=== PATIENT | female | born 1990 | race Hispanic/Latino ===

== ENCOUNTER → 2023-05-07 | Outpatient (CLI) | payer MEDICARE, OTHER | END | disposition home or self-care (01) | LOC: RAH 10:32 | PROVIDERS: ATTEND Family Medicine | DX: E04.1 Nontoxic single thyroid nodule (principal) | CPT/HCPCS: 76536 ==

== ENCOUNTER 2024-02-04 12:03 | Observation (INO) | payer OTHER ==
[~2024-02-04] VITALS: Ht 160 cm; Wt 77.6 kg
[2024-02-04 13:01] LABS: APPEARANCE,URINE CLEAR (CLEAR); BILIRUBIN,URINE NEGATIVE (NEGATIVE); COLOR,URINE COLORLESS (YELLOW); GLUCOSE, URINE (UA) NEGATIVE (NEGATIVE); KETONES,URINE NEGATIVE (NEGATIVE); LEUKOCYTE ESTERASE ,URINE NEGATIVE Leu/uL (NEGATIVE); NITRATE,URINE NEGATIVE (NEGATIVE); OCCULT BLOOD,URINE NEGATIVE (NEGATIVE); PH,URINE 6.5 (5.0-8.0); PROTEIN,URINE 10 mg/dL (NEGATIVE); UROBILINOGEN,URINE 0.2 mg/dL (0.2-1.0)
[2024-02-04 13:04] LABS: BASOPHILS # (AUTO) 0.02 K/uL (0.00-0.20); BASOPHILS % (AUTO) 0.3 % (0.0-5.0); EOSINOPHILS # (AUTO) 0.08 K/uL (0.00-0.70); EOSINOPHILS % (AUTO) 1.3 % (0.0-8.0); IMMATURE GRANULOCYTE ABSOLUTE 0.08 K/uL (0-1); LYMPHOCYTES # (AUTO) 1.5 K/uL (1.0-4.8); LYMPHOCYTES % (AUTO) 24.4 % (21.0-51.0); MEAN CORPUSCULAR HEMOGLOBIN 29.8 pg (27.0-33.0); MEAN CORPUSCULAR HGB CONC 33.8 g/dL (32.0-36.0); MONOCYTES # (AUTO) 0.4 K/uL (0.1-1.0); MONOCYTES % (AUTO) 5.7 % (3.0-13.0); NEUTROPHILS # (AUTO) 4.2 K/uL (1.8-7.7); PLATELET COUNT (AUTO) 263 K/uL (130-400); RED BLOOD CELL COUNT(AUTO) 4.43 MIL/uL (4.00-5.50); RED CELL DISTRIBUTION WIDTH 13.5 % (11.0-15.5); WHITE BLOOD COUNT (AUTO) 6.3 K/uL (4.8-10.8)
[2024-02-04 13:15] LABS: INR <= 0.93 (0.85-1.15); PROTHROMBIN TIME 9.8 SEC (9.6-11.6)
[2024-02-04 13:17] LABS: PARTIAL THROMBOPLASTIN TIME 25.5 SEC (26.3-35.5)
[2024-02-04 13:23] LABS: CREATININE 0.6 mg/dL (0.5-1.0); POTASSIUM 4.1 mmol/L (3.5-5.1)
[2024-02-04 13:24] LABS: ADD UA MICROSCOPIC YES; ALBUMIN 2.7 g/dL (3.5-5.0); BILIRUBIN,TOTAL 0.3 mg/dL (0.2-1.0); TOTAL PROTEIN, SERUM 6.9 g/dL (6.0-8.3); URIC ACID 5.9 mg/dL (2.6-7.2)
[2024-02-04 13:35] LABS: RBC,URINE 0-1 /HPF (0-1); WBC,URINE 0-1 /HPF (0-1)
[2024-02-04] MEDS ORDERED: TERBUTALINE SULFATE VIAL 1MG/ML SQ ONE (13:52)
[2024-02-04] MEDS: TERBUTALINE SULFATE VIAL 1MG/ML SQ PRN (13:55)
[2024-02-04] MEDS: LACTATED RINGERS 1000ML 1,000 ML IV SCH (13:56)
[2024-02-04 14:29] LABS: FIBRINOGEN 533 mg/dL (180-350)
[2024-02-04] MEDS: ACETAMINOPHEN 500 MG TABLET PO ONE (15:43)
== END 2024-02-04 16:55 | disposition home or self-care (01) ==
LOC: LDH 12:03
PROVIDERS: ADMIT Obstetrics & Gynecology; ATTEND Obstetrics & Gynecology
DX: O10.913 Unspecified pre-existing hypertension complicating pregnancy, third trimester (principal); O26.893 Other specified pregnancy related conditions, third trimester; R11.0 Nausea; R19.7 Diarrhea, unspecified; Z3A.36 36 weeks gestation of pregnancy
CPT/HCPCS: 96372; 96360; 96361 ×2; 84550; 80053; 85025; 85384; 85610; 85730; 81001; 36415; 76805; G0378 ×5; G0379; J3105; J7120 ×2

== ENCOUNTER 2024-02-11 10:59 | Inpatient (IN) | payer OTHER ==
[~2024-02-11] VITALS: Ht 160 cm; Wt 77.6 kg
[2024-02-11 11:45] VITALS: BP 132/88; PULSE 91; RESP 17
[2024-02-11 12:36] LABS: BASOPHILS # (AUTO) 0.01 K/uL (0.00-0.20); BASOPHILS % (AUTO) 0.2 % (0.0-5.0); EOSINOPHILS # (AUTO) 0.06 K/uL (0.00-0.70); EOSINOPHILS % (AUTO) 0.9 % (0.0-8.0); HEMATOCRIT 39.7 % (36-48); IMMATURE GRANULOCYTE ABSOLUTE 0.08 K/uL (0-1); LYMPHOCYTES # (AUTO) 1.4 K/uL (1.0-4.8); LYMPHOCYTES % (AUTO) 22.2 % (21.0-51.0); MEAN CORPUSCULAR HEMOGLOBIN 29.7 pg (27.0-33.0); MEAN CORPUSCULAR HGB CONC 33.2 g/dL (32.0-36.0); MEAN CORPUSCULAR VOLUME 89.2 fL (79-99); MONOCYTES # (AUTO) 0.4 K/uL (0.1-1.0); MONOCYTES % (AUTO) 6.2 % (3.0-13.0); NEUTROPHILS # (AUTO) 4.5 K/uL (1.8-7.7); NEUTROPHILS % (AUTO) 69.3 % (40.0-77.0); PLATELET COUNT (AUTO) 250 K/uL (130-400); RED BLOOD CELL COUNT(AUTO) 4.45 MIL/uL (4.00-5.50); RED CELL DISTRIBUTION WIDTH 13.5 % (11.0-15.5); WHITE BLOOD COUNT (AUTO) 6.5 K/uL (4.8-10.8)
[2024-02-11 12:37] LABS: CREATININE 0.5 mg/dL (0.5-1.0); POTASSIUM 4.1 mmol/L (3.5-5.1)
[2024-02-11 12:38] LABS: ADD UA MICROSCOPIC YES; APPEARANCE,URINE CLEAR (CLEAR); BILIRUBIN,URINE NEGATIVE (NEGATIVE); COLOR,URINE LIGHT-YELLOW (YELLOW); GLUCOSE, URINE (UA) NEGATIVE (NEGATIVE); KETONES,URINE NEGATIVE (NEGATIVE); LEUKOCYTE ESTERASE ,URINE NEGATIVE Leu/uL (NEGATIVE); NITRATE,URINE NEGATIVE (NEGATIVE); OCCULT BLOOD,URINE NEGATIVE (NEGATIVE); PH,URINE 6.5 (5.0-8.0); PROTEIN,URINE 20 mg/dL (NEGATIVE); UROBILINOGEN,URINE 0.2 mg/dL (0.2-1.0)
[2024-02-11 12:44] LABS: ALBUMIN 2.8 g/dL (3.5-5.0); BILIRUBIN,TOTAL 0.3 mg/dL (0.2-1.0); TOTAL PROTEIN, SERUM 6.9 g/dL (6.0-8.3); URIC ACID 6.5 mg/dL (2.6-7.2)
[2024-02-11 12:59] LABS: BACTERIA,URINE Rare /HPF (None Seen); INR <= 0.93 (0.85-1.15); PROTHROMBIN TIME 9.8 SEC (9.6-11.6); RBC,URINE None Seen /HPF (0-1); SQUAMOUS EPITHELIAL CELL,UR Rare /HPF (0-2)
[2024-02-11 13:00] LABS: PARTIAL THROMBOPLASTIN TIME 26.7 SEC (26.3-35.5)
[2024-02-11] MEDS ORDERED: LACTATED RINGERS 1000ML 1,000 ML IV PRN (13:00)
[2024-02-11 13:10] LABS: FIBRINOGEN 515 mg/dL (180-350)
[2024-02-11 13:12] LABS: HEMATOCRIT 39.2 % (36-48); MEAN CORPUSCULAR HEMOGLOBIN 29.8 pg (27.0-33.0); MEAN CORPUSCULAR HGB CONC 33.2 g/dL (32.0-36.0); MEAN CORPUSCULAR VOLUME 89.9 fL (79-99); RED BLOOD CELL COUNT(AUTO) 4.36 MIL/uL (4.00-5.50); RED CELL DISTRIBUTION WIDTH 13.5 % (11.0-15.5); WHITE BLOOD COUNT (AUTO) 6.7 K/uL (4.8-10.8)
[2024-02-11] MEDS: LACTATED RINGERS 1000ML 1,000 ML IV SCH (13:20)
[2024-02-11 14:28] LABS: HIV 1&2 ANTIBODY Non-Reactive (Negative); HIV-1 p24 Antigen Non-Reactive (Negative)
[2024-02-11] MEDS ORDERED: MORPHINE PF 100MG/10ML AMP IV ONE (16:25)
[2024-02-11] MEDS: CEFAZOLIN SODIUM 2 GM VIAL IVPB PRN (16:30)
[2024-02-11] MEDS: CEFAZOLIN SODIUM 2 GM VIAL IVPB ONE (16:30)
[2024-02-11] MEDS ORDERED: ONDANSETRON 4MG INJ ONE (16:52)
[2024-02-11] MEDS: CALDOLOR 800MG+NS 250ML 250 ML IV PRN (17:00)
[2024-02-11] MEDS ORDERED: ONDANSETRON 4MG INJ IVP PRN (18:00)
[2024-02-11] MEDS: LORATADINE 10 MG TABLET PO PRN (18:13)
[2024-02-11] MEDS: DiphenhydrAMINE HCL 50 MG/ML VIAL IV ONE (18:13)
[2024-02-11] MEDS: OXYTOCIN-LR 30 UNITS/500ML 500 ML IV SCH (18:17)
[2024-02-11] MEDS ORDERED: PROMETHAZINE HCL 25 MG/ML 1ML AMPULE IM PRN (22:30)
[2024-02-11] MEDS ORDERED: 0.9%NACL 10ML VIAL IVP PRN (22:30)
[2024-02-11] MEDS ORDERED: MEPERIDINE-PF 75 MG/ML SYG IM PRN (22:30)
[2024-02-11] MEDS: DEXTROSE 5 %-0.45 % NACL 1,000 ML IV PRN (23:44)
[2024-02-12] MEDS: DiphenhydrAMINE HCL 50 MG/ML VIAL IV ONE (01:32)
[2024-02-12] MEDS: CALDOLOR 800MG+NS 250ML 250 ML IV SCH (01:33)
[2024-02-12 03:50] VITALS: BP 119/76; PULSE 83; RESP 17
[2024-02-12] MEDS ORDERED: BISACODYL 10 MG SUPP.RECT RC PRN (04:30)
[2024-02-12 06:53] LABS: HEMATOCRIT 35.1 % (36-48); MEAN CORPUSCULAR HEMOGLOBIN 29.3 pg (27.0-33.0); MEAN CORPUSCULAR HGB CONC 34.2 g/dL (32.0-36.0); MEAN CORPUSCULAR VOLUME 85.6 fL (79-99); RED BLOOD CELL COUNT(AUTO) 4.1 MIL/uL (4.00-5.50); RED CELL DISTRIBUTION WIDTH 13.4 % (11.0-15.5); WHITE BLOOD COUNT (AUTO) 7.7 K/uL (4.8-10.8)
[2024-02-12 07:40] VITALS: BP 116/81; PULSE 83; RESP 18
[2024-02-12] MEDS: DOCUSATE SODIUM 100 MG CAP PO SCH (10:05)
[2024-02-12] MEDS: IBUPROFEN 600 MG TABLET PO PRN (10:19)
[2024-02-12 13:25] VITALS: BP 137/91; PULSE 98; RESP 18
[2024-02-12] MEDS: DIPHENHYDRAMINE HCL 25 MG CAPSULE PO ONE (13:46)
[2024-02-12] MEDS: ACETAMINOPHEN 500 MG TABLET PO PRN (14:41)
[2024-02-12 16:52] VITALS: BP 128/89; PULSE 97; RESP 18
[2024-02-12 19:12] LABS: RAPID PLASMA REAGIN NONREACTIVE (NONREACTIVE)
[2024-02-12 19:31] VITALS: BP 131/88; PULSE 82; RESP 17
[2024-02-12] MEDS: LANOLIN 30GM OINTMENT TP PRN (20:04)
[2024-02-12] MEDS: HYDROCODONE/ACETAMINOPHEN 5/325 MG TAB PO PRN (20:16)
[2024-02-12] MEDS: SIMETHICONE 80 MG TAB.CHEW PO PRN (20:16)
[2024-02-12 23:44] VITALS: BP 135/91; PULSE 90; RESP 17
[2024-02-13 04:19] VITALS: BP 126/79; PULSE 85; RESP 18
[2024-02-13 07:45] VITALS: BP 124/85; PULSE 76; RESP 18
[2024-02-13] MEDS: ACETAMINOPHEN WITH CODEINE 1 TAB TAB PO PRN (08:25)
[2024-02-13] MEDS ORDERED: PREN1TAB80 PO (10:22)
== END 2024-02-13 10:48 | disposition home or self-care (01) | DRG 788 ==
LOC: EDH 10:59 → OBSVTOIN 11:42 → LDH 11:42 → WSH 20:09
PROVIDERS: ADMIT Obstetrics & Gynecology; ATTEND Obstetrics & Gynecology
PROC: 10D00Z1 Extraction of Products of Conception, Low, Open Approach (ICD-10-PCS; principal; 2024-02-11 17:00)
DX: O99.824 Streptococcus B carrier state complicating childbirth (principal); O34.211 Maternal care for low transverse scar from previous cesarean delivery; Z37.0 Single live birth; Z3A.37 37 weeks gestation of pregnancy
CPT/HCPCS: 36415; 59510; 80053; 81001; 84550; 85025; 85027; 85384; 85610; 85730; 86592; 86701; 86850; 86900; 86901; 87340; 87390; A4344; G0378; J1200; J1741; J2274; J2405; J7120; Q0163; A4248; A4649; C1765; J0690